=== PATIENT | female | born 1950 | race Two or more races ===

== ENCOUNTER 2023-05-28 15:18 | Emergency (ER) | payer OTHER ==
[~2023-05-28] VITALS: Ht 167.6 cm; Wt 49.9 kg
[2023-05-28 15:24] VITALS: TEMP 98.7
[2023-05-28 16:37] LABS: BASOPHILS % (AUTO) 0.7 % (0.0-2.0); EOSINOPHILS # (AUTO) 0.1 K/uL (0.0-0.7); EOSINOPHILS % (AUTO) 2.5 % (0.0-6.0); HEMATOCRIT 43 % (33-45); HEMOGLOBIN 13.8 g/dL (11.5-14.8); LYMPHOCYTES # (AUTO) 0.9 K/uL (0.8-4.8); LYMPHOCYTES % (AUTO) 20.6 % (20.0-44.0); MEAN CORPUSCULAR HEMOGLOBIN 29 PG (26.0-33.0); MEAN CORPUSCULAR HGB CONC 32 g/dl (31.0-36.0); MEAN CORPUSCULAR VOLUME 89 fL (82-100); MONOCYTES # (AUTO) 0.4 K/uL (0.1-1.30); MONOCYTES % (AUTO) 8.3 % (2.0-12.0); NEUTROPHILS # (AUTO) 2.9 K/uL (1.8-8.9); NEUTROPHILS % (AUTO) 67.9 % (43.0-81.0); PLATELET COUNT (AUTO) 196 K/uL (150-450); RED BLOOD CELL COUNT(AUTO) 4.84 MIL/uL (4.0-5.2); WHITE BLOOD COUNT (AUTO) 4.2 K/uL (4.3-11.0)
[2023-05-28 16:49] LABS: LACTIC ACID 0.7 mmol/L (0.4-2.0)
[2023-05-28 16:53] LABS: CALCIUM, SERUM 10.1 mg/dL (8.5-10.1); CARBON DIOXIDE 30 mmol/L (21-32); CHLORIDE 97 mmol/L (98-107); CREATININE 0.7 mg/dL (0.6-1.3); GLUCOSE 94 mg/dL (74-106); POTASSIUM 3.6 mmol/L (3.5-5.1); SODIUM SERUM 134 mmol/L (136-145); UREA NITROGEN, BLOOD 12 mg/dL (7-18)
[2023-05-28 16:58] LABS: ALANINE AMINOTRANSFERASE 24 U/L (12-78); ALKALINE PHOSPHATASE 95 U/L (46-116); ASPARTATE AMINOTRANSFERASE 25 U/L (15-37); BILIRUBIN,DIRECT 0.1 mg/dL (0.0-0.2); BILIRUBIN,TOTAL 0.5 mg/dL (0.2-1.0); TOTAL PROTEIN, SERUM 9.9 g/dL (6.4-8.2)
[2023-05-28] MEDS ORDERED: MORPHINE SULFATE INJ 2 MG/ML DISP.SYRIN IV ONE (17:30)
[2023-05-28] MEDS ORDERED: MORPHINE SULFATE INJ 2 MG/ML DISP.SYRIN ONE (17:44)
[2023-05-28] MEDS ORDERED: LORAZEPAM INJ 2 MG/ML VIAL ONE (17:58)
[2023-05-28] MEDS ORDERED: SENN-18 PO (18:01)
[2023-05-28] MEDS ORDERED: TRIH5TAB3 PO (18:01)
[2023-05-28] MEDS ORDERED: BISA10SU11 RC (18:01)
[2023-05-28] MEDS ORDERED: ACET-2605 PO (18:01)
[2023-05-28] MEDS ORDERED: CALC-883 PO (18:01)
[2023-05-28] MEDS ORDERED: DICL100G26 TP (18:01)
[2023-05-28] MEDS ORDERED: ONDA-97 PO (18:01)
[2023-05-28] MEDS ORDERED: AMAN100T PO (18:01)
[2023-05-28] MEDS ORDERED: ACET-868 PO ×2 (18:01)
[2023-05-28] MEDS ORDERED: PROP10TA10 PO (18:01)
[2023-05-28] MEDS ORDERED: PANT20TA2 PO (18:01)
[2023-05-28] MEDS ORDERED: QUET25TA PO (18:01)
[2023-05-28] MEDS ORDERED: ACET650S11 RC (18:01)
[2023-05-28 18:07] LABS: APPEARANCE,URINE CLEAR (CLEAR); BILIRUBIN,URINE NEGATIVE (NEGATIVE); BLOOD, URINE TRACE-INTA Ery/uL (NEGATIVE); COLOR,URINE YELLOW (YELLOW); KETONES,URINE NEGATIVE (NEGATIVE); LEUKOCYTE ESTERASE ,URINE NEGATIVE (NEGATIVE); NITRITE, URINE NEGATIVE (NEGATIVE); PROTEIN,URINE NEGATIVE (NEGATIVE); UGLUCOSE NEGATIVE (NEGATIVE); UROBILINOGEN,URINE 0.2 EU/dL (0.2)
[2023-05-28 18:25] LABS: ADD URINE CULTURE NO; BACTERIA,URINE Rare /HPF (None Seen); WBC,URINE NONE SEEN /HPF (0-3)
[2023-05-28 18:26] LABS: SQUAMOUS EPITHELIAL CELL,UR Rare /HPF (None Seen)
[2023-05-28] MEDS ORDERED: ATRO2DRO4 SL (18:29)
[2023-05-28] MEDS ORDERED: LORAZEPAM INJ 2 MG/ML VIAL IV ONE (18:30)
[2023-05-28 19:00] VITALS: BP 152/98; O2SAT 98
== END 2023-05-28 22:12 ==
LOC: ER 15:26
DX: S09.90XA Unspecified injury of head, initial encounter (principal); G20.A1 Parkinson's disease without dyskinesia, without mention of fluctuations; F02.80 Dementia in other diseases classified elsewhere, unspecified severity, without behavioral disturbance, psychotic disturbance, mood disturbance, and anxiety; Z79.899 Other long term (current) drug therapy; W18.30XA Fall on same level, unspecified, initial encounter; Y93.89 Activity, other specified; Y92.89 Other specified places as the place of occurrence of the external cause; Y99.8 Other external cause status
CPT/HCPCS: 99285; 96374; 70450; 71045; 96375; 93005; 85025; 80048; 82550; 83605; 80076; 81001; 36415; 84484; 83880; J2060; J2270

== ENCOUNTER 2024-08-18 19:35 | Emergency (ER) | payer OTHER ==
[~2024-08-18] VITALS: Ht 162.6 cm; Wt 45.8 kg
[~2024-08-18 19:35] MED LIST: ACET-2605 PO; ACET-868 PO; ACET650S11 RC; AMAN100T PO; ATRO2DRO4 SL; BISA10SU11 RC; CALC-883 PO; DICL100G26 TP; ONDA-97 PO; PANT20TA2 PO; PROP10TA10 PO; QUET25TA PO; SENN-18 PO; TRIH5TAB3 PO
[2024-08-18 20:30] VITALS: BP 123/98; TEMP 98.3; O2SAT 95
[2024-08-18] MEDS ORDERED: HALOPERIDOL LACTATE INJ 5 MG/ML VIAL ONE (20:36)
[2024-08-18] MEDS: HALOPERIDOL LACTATE INJ 5 MG/ML VIAL IM ONE (20:37)
[2024-08-18] MEDS ORDERED: diphenhydrAMINE HCL 50 MG/ML VIAL ONE (21:32)
[2024-08-18] MEDS ORDERED: LORAZEPAM INJ 2 MG/ML VIAL ONE (21:32)
[2024-08-18] MEDS: diphenhydrAMINE HCL 50 MG/ML VIAL IM ONE (21:44)
[2024-08-18] MEDS: LORAZEPAM INJ 2 MG/ML VIAL IV ONE (21:45)
[2024-08-18 23:42] LABS: BASOPHILS % (AUTO) 0.5 % (0.0-2.0); EOSINOPHILS # (AUTO) 0.1 K/uL (0.0-0.7); EOSINOPHILS % (AUTO) 1.5 % (0.0-6.0); HEMATOCRIT 37 % (33-45); HEMOGLOBIN 12.2 g/dL (11.5-14.8); LYMPHOCYTES # (AUTO) 1.5 K/uL (0.8-4.8); LYMPHOCYTES % (AUTO) 15.1 % (20.0-44.0); MEAN CORPUSCULAR HEMOGLOBIN 30 PG (26.0-33.0); MEAN CORPUSCULAR HGB CONC 33 g/dl (31.0-36.0); MEAN CORPUSCULAR VOLUME 90 fL (82-100); MONOCYTES # (AUTO) 0.8 K/uL (0.1-1.30); MONOCYTES % (AUTO) 8.1 % (2.0-12.0); NEUTROPHILS # (AUTO) 7.2 K/uL (1.8-8.9); NEUTROPHILS % (AUTO) 74.8 % (43.0-81.0); PLATELET COUNT (AUTO) 238 K/uL (150-450); RED BLOOD CELL COUNT(AUTO) 4.06 MIL/uL (4.0-5.2); RED CELL DISTRIBUTION WIDTH 16.7 % (11.5-15.0); WHITE BLOOD COUNT (AUTO) 9.6 K/uL (4.3-11.0)
[2024-08-18 23:56] LABS: ALANINE AMINOTRANSFERASE 12 U/L (12-78); ALBUMIN 3.3 g/dL (3.4-5.0); ALKALINE PHOSPHATASE 74 U/L (46-116); ASPARTATE AMINOTRANSFERASE 23 U/L (15-37); BILIRUBIN,DIRECT 0.1 mg/dL (0.0-0.2); BILIRUBIN,TOTAL 0.2 mg/dL (0.2-1.0); CALCIUM, SERUM 9.9 mg/dL (8.5-10.1); CARBON DIOXIDE 27 mmol/L (21-32); CHLORIDE 105 mmol/L (98-107); CREATININE 0.8 mg/dL (0.6-1.3); GLUCOSE 99 mg/dL (74-106); POTASSIUM 4.5 mmol/L (3.5-5.1); SODIUM SERUM 138 mmol/L (136-145); TOTAL PROTEIN, SERUM 8.7 g/dL (6.4-8.2); UREA NITROGEN, BLOOD 21 mg/dL (7-18)
== END 2024-08-19 01:22 | disposition home or self-care (01) ==
LOC: ER 19:46
DX: M54.2 Cervicalgia (principal); F02.80 Dementia in other diseases classified elsewhere, unspecified severity, without behavioral disturbance, psychotic disturbance, mood disturbance, and anxiety; I10 Essential (primary) hypertension; G20.A1 Parkinson's disease without dyskinesia, without mention of fluctuations; G30.9 Alzheimer's disease, unspecified; Z79.899 Other long term (current) drug therapy; W18.30XA Fall on same level, unspecified, initial encounter; Y93.89 Activity, other specified; Y92.89 Other specified places as the place of occurrence of the external cause; Y99.8 Other external cause status
CPT/HCPCS: 99285; 72125; 96372 ×2; 71250; 70450; 74176; 85025; 80048; 80076; 36415; J2060; J1200; J1630; L0172

== ENCOUNTER 2024-08-30 20:48 | Inpatient (IN) | payer OTHER ==
[~2024-08-30] VITALS: Ht 152.4 cm; Wt 32.2 kg
[2024-08-30] MEDS ORDERED: ONDANSETRON HCL/PF 4 MG/2 ML VIAL ONE (21:21)
[2024-08-30] MEDS: ONDANSETRON HCL/PF 4 MG/2 ML VIAL IV ONE (21:28)
[2024-08-30 21:30] LABS: EOSINOPHILS # (AUTO) 0.1 K/uL (0.0-0.7); MONOCYTES # (AUTO) 0.9 K/uL (0.1-1.30)
[2024-08-30 21:41] LABS: CALCIUM, SERUM 9.7 mg/dL (8.5-10.1); CARBON DIOXIDE 30 mmol/L (21-32); CHLORIDE 104 mmol/L (98-107); CREATININE 0.9 mg/dL (0.6-1.3); GLUCOSE 99 mg/dL (74-106); POTASSIUM 3.8 mmol/L (3.5-5.1); SODIUM SERUM 140 mmol/L (136-145); UREA NITROGEN, BLOOD 30 mg/dL (7-18)
[2024-08-30 21:54] LABS: BASOPHILS % (AUTO) 0.2 % (0.0-2.0); EOSINOPHILS % (AUTO) 1.3 % (0.0-6.0); HEMATOCRIT 34 % (33-45); HEMOGLOBIN 10.9 g/dL (11.5-14.8); LYMPHOCYTES # (AUTO) 1.2 K/uL (0.8-4.8); LYMPHOCYTES % (AUTO) 10.9 % (20.0-44.0); MEAN CORPUSCULAR HEMOGLOBIN 29 PG (26.0-33.0); MEAN CORPUSCULAR HGB CONC 32 g/dl (31.0-36.0); MEAN CORPUSCULAR VOLUME 90 fL (82-100); MONOCYTES % (AUTO) 7.9 % (2.0-12.0); NEUTROPHILS # (AUTO) 8.9 K/uL (1.8-8.9); NEUTROPHILS % (AUTO) 79.7 % (43.0-81.0); PLATELET COUNT (AUTO) 244 K/uL (150-450); RED BLOOD CELL COUNT(AUTO) 3.77 MIL/uL (4.0-5.2); RED CELL DISTRIBUTION WIDTH 15.7 % (11.5-15.0); WHITE BLOOD COUNT (AUTO) 11.1 K/uL (4.3-11.0)
[2024-08-30 22:03] LABS: INR 1.06 (0.91-1.10); PARTIAL THROMBOPLASTIN TIME 25.6 SEC (24.3-34.3); PROTHROMBIN TIME 11.2 SECS (9.2-11.1)
[2024-08-31] MEDS ORDERED: MAG HYDROX/AL HYDROX/SIMETH 30 ML UDC PO PRN
[2024-08-31] MEDS ORDERED: ENOXAPARIN SODIUM 40 MG/0.4 ML DISP.SYRIN SQ SCH
[2024-08-31] MEDS ORDERED: MAGNESIUM HYDROXIDE 30 ML UDC PO PRN
[2024-08-31] MEDS ORDERED: ONDANSETRON HCL/PF 4 MG/2 ML VIAL IVP PRN
[2024-08-31] MEDS ORDERED: ACETAMINOPHEN 325 MG TABLET PO PRN
[2024-08-31] MEDS ORDERED: MIRT-119 PO (00:05)
[2024-08-31] MEDS ORDERED: ROPI0.255 PO (00:05)
[2024-08-31] MEDS ORDERED: BUSP5TAB3 PO (00:05)
[2024-08-31] MEDS ORDERED: carbidopa-levodopa PO (00:12)
[2024-08-31] MEDS ORDERED: Medication Not On Formulary EA (Ondansetron Hcl 4 MG) PO PRN (00:30)
[2024-08-31 02:30] VITALS: BP 136/72; TEMP 97.7; O2SAT 97
[2024-08-31 04:00] VITALS: BP 152/83; TEMP 97.5; O2SAT 99
[2024-08-31] MEDS: IV D5/ 0.9% NACL 1,000 ML IV SCH (05:31)
[2024-08-31 08:00] VITALS: BP 175/90; TEMP 97.5; O2SAT 93
[2024-08-31 08:01] LABS: BASOPHILS % (AUTO) 0.3 % (0.0-2.0); EOSINOPHILS # (AUTO) 0.2 K/uL (0.0-0.7); EOSINOPHILS % (AUTO) 1.9 % (0.0-6.0); HEMATOCRIT 38 % (33-45); HEMOGLOBIN 12.5 g/dL (11.5-14.8); LYMPHOCYTES # (AUTO) 0.9 K/uL (0.8-4.8); LYMPHOCYTES % (AUTO) 11.3 % (20.0-44.0); MEAN CORPUSCULAR HEMOGLOBIN 30 PG (26.0-33.0); MEAN CORPUSCULAR HGB CONC 33 g/dl (31.0-36.0); MEAN CORPUSCULAR VOLUME 91 fL (82-100); MONOCYTES # (AUTO) 0.6 K/uL (0.1-1.30); MONOCYTES % (AUTO) 7.9 % (2.0-12.0); NEUTROPHILS # (AUTO) 6.1 K/uL (1.8-8.9); NEUTROPHILS % (AUTO) 78.6 % (43.0-81.0); PLATELET COUNT (AUTO) 213 K/uL (150-450); RED BLOOD CELL COUNT(AUTO) 4.22 MIL/uL (4.0-5.2); RED CELL DISTRIBUTION WIDTH 15.3 % (11.5-15.0); WHITE BLOOD COUNT (AUTO) 7.8 K/uL (4.3-11.0)
[2024-08-31 08:10] LABS: CALCIUM, SERUM 9.2 mg/dL (8.5-10.1); CREATININE 0.6 mg/dL (0.6-1.3); MAGNESIUM 2.4 mg/dL (1.8-2.4); PHOSPHORUS 2.7 mg/dL (2.5-4.9)
[2024-08-31] MEDS: TRIHEXYPHENIDYL HCL 5 MG TABLET PO SCH (09:00)
[2024-08-31] MEDS: busPIRone 5 MG TABLET PO SCH (09:00)
[2024-08-31] MEDS: ropiniROLE 0.5 MG TABLET PO SCH (09:00)
[2024-08-31] MEDS: PROPRANOLOL HCL 10 MG TABLET PO SCH (09:00)
[2024-08-31] MEDS: CARBIDOPA/LEVODOPA 10/100 MG 1 UDTAB PO SCH (09:00)
[2024-08-31] MEDS ORDERED: CRAN400C PO (09:20)
[2024-08-31] MEDS: PANTOPRAZOLE 40 MG VIAL IV SCH (09:53)
[2024-08-31] MEDS: SENNOSIDES 8.6 MG TABLET PO SCH (09:54)
[2024-08-31 12:00] VITALS: BP 172/93; TEMP 97.7; O2SAT 95
[2024-08-31] MEDS: ATORVASTATIN 40 MG TABLET PO SCH (12:00)
[2024-08-31] MEDS ORDERED: MORPHINE SULFATE INJ 2 MG/ML DISP.SYRIN IV PRN (12:00)
[2024-08-31 12:50] LABS: INR 1.06 (0.91-1.10); PARTIAL THROMBOPLASTIN TIME 30.7 SEC (24.3-34.3); PROTHROMBIN TIME 11.2 SECS (9.2-11.1)
[2024-08-31] MEDS: NITROGLYCERIN PACKET 1 GM PACKET TOP SCH (13:07)
[2024-08-31] MEDS: HEPARIN SODIUM, PORCINE 5000 UNITS/1 ML VIAL IV ONE (13:47)
[2024-08-31] MEDS: HEPARIN INFUSION/D5W 500 ML IV PRN (13:49)
[2024-08-31 16:00] VITALS: BP 150/90; TEMP 97.5; O2SAT 100
[2024-08-31] MEDS: MIRTAZAPINE 15 MG TABLET PO SCH (18:00)
[2024-08-31] MEDS: LISINOPRIL (10MG) 10 MG TABLET PO SCH (19:30)
[2024-08-31 20:00] VITALS: BP 156/92; TEMP 97.9; O2SAT 100
[2024-08-31] MEDS: METOPROLOL TARTRATE 25 MG TABLET PO SCH (21:00)
[2024-08-31 21:31] LABS: INR 1.08 (0.91-1.10); PARTIAL THROMBOPLASTIN TIME 40.4 SEC (24.3-34.3); PROTHROMBIN TIME 11.4 SECS (9.2-11.1)
[2024-09-01] VITALS: BP 155/93; TEMP 97.5; O2SAT 100
[2024-09-01 03:59] LABS: BASOPHILS % (AUTO) 0.6 % (0.0-2.0); EOSINOPHILS # (AUTO) 0.2 K/uL (0.0-0.7); EOSINOPHILS % (AUTO) 3.3 % (0.0-6.0); HEMATOCRIT 36 % (33-45); HEMOGLOBIN 11.8 g/dL (11.5-14.8); LYMPHOCYTES # (AUTO) 0.9 K/uL (0.8-4.8); LYMPHOCYTES % (AUTO) 13.6 % (20.0-44.0); MEAN CORPUSCULAR HEMOGLOBIN 30 PG (26.0-33.0); MEAN CORPUSCULAR HGB CONC 33 g/dl (31.0-36.0); MEAN CORPUSCULAR VOLUME 91 fL (82-100); MONOCYTES # (AUTO) 0.6 K/uL (0.1-1.30); MONOCYTES % (AUTO) 8.3 % (2.0-12.0); NEUTROPHILS % (AUTO) 74.2 % (43.0-81.0); PLATELET COUNT (AUTO) 198 K/uL (150-450); RED BLOOD CELL COUNT(AUTO) 3.98 MIL/uL (4.0-5.2); RED CELL DISTRIBUTION WIDTH 14.8 % (11.5-15.0); WHITE BLOOD COUNT (AUTO) 6.7 K/uL (4.3-11.0)
[2024-09-01 04:00] VITALS: BP 153/97; TEMP 97.9; O2SAT 100
[2024-09-01 04:11] LABS: CALCIUM, SERUM 8.6 mg/dL (8.5-10.1); CREATININE 0.6 mg/dL (0.6-1.3); MAGNESIUM 2.1 mg/dL (1.8-2.4); PHOSPHORUS 3.1 mg/dL (2.5-4.9); POTASSIUM 3.4 mmol/L (3.5-5.1)
[2024-09-01 08:00] VITALS: BP 159/87; TEMP 97.7; O2SAT 100
[2024-09-01] MEDS: POTASSIUM CHLORIDE 20 MEQ TAB.PRT.SR PO SCH (10:30)
[2024-09-01] MEDS: POTASSIUM CL. PREMIX PERIPHER. 50 ML IV SCH (11:57)
[2024-09-01 12:00] VITALS: BP 162/97; TEMP 98.1; O2SAT 100
[2024-09-01 16:00] VITALS: BP 166/97; TEMP 98.6; O2SAT 100
[2024-09-01] MEDS: hydrALAZINE HCL IV 20 MG VIAL IV PRN (16:25)
[2024-09-01] MEDS: METOPROLOL TARTRATE INJ 5 MG/5 ML AMPUL IVP ONE (17:07)
[2024-09-01] MEDS: IV D5/ 0.9% NACL 1,000 ML IV PRN (18:10)
[2024-09-01 20:00] VITALS: BP 154/88; TEMP 98.2; O2SAT 98
[2024-09-02] VITALS: BP 150/83; TEMP 98.1; O2SAT 99
[2024-09-02 04:00] VITALS: BP 157/85; TEMP 98.2; O2SAT 100
[2024-09-02 07:46] LABS: BASOPHILS % (AUTO) 0.3 % (0.0-2.0); EOSINOPHILS % (AUTO) 0.2 % (0.0-6.0); HEMATOCRIT 36 % (33-45); HEMOGLOBIN 11.7 g/dL (11.5-14.8); LYMPHOCYTES # (AUTO) 0.5 K/uL (0.8-4.8); LYMPHOCYTES % (AUTO) 4.1 % (20.0-44.0); MEAN CORPUSCULAR HEMOGLOBIN 30 PG (26.0-33.0); MEAN CORPUSCULAR HGB CONC 33 g/dl (31.0-36.0); MEAN CORPUSCULAR VOLUME 91 fL (82-100); MONOCYTES # (AUTO) 0.6 K/uL (0.1-1.30); MONOCYTES % (AUTO) 4.5 % (2.0-12.0); NEUTROPHILS # (AUTO) 11.8 K/uL (1.8-8.9); NEUTROPHILS % (AUTO) 90.9 % (43.0-81.0); PLATELET COUNT (AUTO) 182 K/uL (150-450); RED BLOOD CELL COUNT(AUTO) 3.94 MIL/uL (4.0-5.2); RED CELL DISTRIBUTION WIDTH 14.6 % (11.5-15.0)
[2024-09-02 07:53] LABS: CALCIUM, SERUM 9.2 mg/dL (8.5-10.1); CREATININE 0.7 mg/dL (0.6-1.3); MAGNESIUM 2.1 mg/dL (1.8-2.4); PHOSPHORUS 2.8 mg/dL (2.5-4.9); POTASSIUM 3.3 mmol/L (3.5-5.1)
[2024-09-02 08:00] VITALS: BP 154/77; TEMP 97.9; O2SAT 100
[2024-09-02] MEDS ORDERED: POTASSIUM CHLORIDE 20 MEQ TAB.PRT.SR PO SCH (09:30)
[2024-09-02] MEDS: PANTOPRAZOLE 40 MG TABLET.DR PO SCH (09:50)
[2024-09-02] MEDS: POTASSIUM CHLORIDE 20 MEQ POWDER PACKET PO ONE (09:51)
[2024-09-02] MEDS ORDERED: POTASSIUM CHLORIDE 20 MEQ POWDER PACKET PO ONE (10:00)
[2024-09-02 12:00] VITALS: BP 156/86; TEMP 98.1; O2SAT 98
[2024-09-02 16:00] VITALS: BP 149/79; TEMP 99; O2SAT 100
[2024-09-02 20:00] VITALS: BP 144/83; TEMP 99; O2SAT 100
[2024-09-03] VITALS: BP 150/83; TEMP 100; O2SAT 100
[2024-09-03] MEDS: ACETAMINOPHEN 650 MG/SUPP.RECT RC PRN (01:16)
[2024-09-03 04:00] VITALS: BP 142/79; TEMP 98.2; O2SAT 100
[2024-09-03 07:34] LABS: BASOPHILS % (AUTO) 0.5 % (0.0-2.0); EOSINOPHILS # (AUTO) 0.2 K/uL (0.0-0.7); EOSINOPHILS % (AUTO) 1.8 % (0.0-6.0); HEMATOCRIT 31 % (33-45); HEMOGLOBIN 10.2 g/dL (11.5-14.8); LYMPHOCYTES # (AUTO) 0.6 K/uL (0.8-4.8); LYMPHOCYTES % (AUTO) 6.6 % (20.0-44.0); MEAN CORPUSCULAR HEMOGLOBIN 30 PG (26.0-33.0); MEAN CORPUSCULAR HGB CONC 33 g/dl (31.0-36.0); MEAN CORPUSCULAR VOLUME 91 fL (82-100); MONOCYTES # (AUTO) 0.6 K/uL (0.1-1.30); MONOCYTES % (AUTO) 7.2 % (2.0-12.0); NEUTROPHILS % (AUTO) 83.9 % (43.0-81.0); PLATELET COUNT (AUTO) 171 K/uL (150-450); RED CELL DISTRIBUTION WIDTH 14.3 % (11.5-15.0); WHITE BLOOD COUNT (AUTO) 8.4 K/uL (4.3-11.0)
[2024-09-03 07:40] LABS: CREATININE 0.6 mg/dL (0.6-1.3); MAGNESIUM 2.1 mg/dL (1.8-2.4); PHOSPHORUS 2.5 mg/dL (2.5-4.9); POTASSIUM 3.2 mmol/L (3.5-5.1)
[2024-09-03 08:00] VITALS: BP 132/72; TEMP 98.2; O2SAT 100
[2024-09-03] MEDS: POTASSIUM CL. PREMIX PERIPHER. 50 ML IV SCH (11:45)
[2024-09-03 16:00] VITALS: BP 144/81; TEMP 98.6; O2SAT 100
[2024-09-04 00:02] VITALS: BP 144/81; TEMP 98.6; O2SAT 100
[2024-09-04 07:47] LABS: BASOPHILS % (AUTO) 0.2 % (0.0-2.0); EOSINOPHILS # (AUTO) 0.2 K/uL (0.0-0.7); EOSINOPHILS % (AUTO) 2.2 % (0.0-6.0); HEMATOCRIT 37 % (33-45); LYMPHOCYTES # (AUTO) 0.8 K/uL (0.8-4.8); LYMPHOCYTES % (AUTO) 9.3 % (20.0-44.0); MEAN CORPUSCULAR HEMOGLOBIN 29 PG (26.0-33.0); MEAN CORPUSCULAR HGB CONC 32 g/dl (31.0-36.0); MEAN CORPUSCULAR VOLUME 91 fL (82-100); MONOCYTES # (AUTO) 0.5 K/uL (0.1-1.30); NEUTROPHILS # (AUTO) 6.7 K/uL (1.8-8.9); NEUTROPHILS % (AUTO) 82.3 % (43.0-81.0); PLATELET COUNT (AUTO) 197 K/uL (150-450); RED BLOOD CELL COUNT(AUTO) 4.08 MIL/uL (4.0-5.2); RED CELL DISTRIBUTION WIDTH 14.2 % (11.5-15.0); WHITE BLOOD COUNT (AUTO) 8.2 K/uL (4.3-11.0)
[2024-09-04 08:13] LABS: CALCIUM, SERUM 9.7 mg/dL (8.5-10.1); CREATININE 0.6 mg/dL (0.6-1.3); MAGNESIUM 2.2 mg/dL (1.8-2.4); PHOSPHORUS 2.7 mg/dL (2.5-4.9); POTASSIUM 3.4 mmol/L (3.5-5.1)
[2024-09-04] MEDS: hydrALAZINE HCL IV 20 MG VIAL IV PRN (09:25)
[2024-09-04] MEDS: POTASSIUM CL. PREMIX PERIPHER. 50 ML IV SCH (10:00)
[2024-09-04 11:39] VITALS: BP 168/78; TEMP 98; O2SAT 95
[2024-09-04 12:12] VITALS: BP 148/71; TEMP 98; O2SAT 99
[2024-09-04 16:52] VITALS: BP 149/74; TEMP 98; O2SAT 98
[2024-09-05] VITALS: BP 150/88; TEMP 98.4; O2SAT 100
[2024-09-05 07:31] VITALS: BP 156/71
[2024-09-05 08:18] LABS: BASOPHILS % (AUTO) 0.5 % (0.0-2.0); EOSINOPHILS # (AUTO) 0.3 K/uL (0.0-0.7); EOSINOPHILS % (AUTO) 4.2 % (0.0-6.0); HEMATOCRIT 36 % (33-45); HEMOGLOBIN 11.8 g/dL (11.5-14.8); LYMPHOCYTES # (AUTO) 0.7 K/uL (0.8-4.8); LYMPHOCYTES % (AUTO) 11.4 % (20.0-44.0); MEAN CORPUSCULAR HEMOGLOBIN 30 PG (26.0-33.0); MEAN CORPUSCULAR HGB CONC 33 g/dl (31.0-36.0); MEAN CORPUSCULAR VOLUME 92 fL (82-100); MONOCYTES # (AUTO) 0.5 K/uL (0.1-1.30); MONOCYTES % (AUTO) 8.3 % (2.0-12.0); NEUTROPHILS # (AUTO) 4.5 K/uL (1.8-8.9); NEUTROPHILS % (AUTO) 75.6 % (43.0-81.0); PLATELET COUNT (AUTO) 185 K/uL (150-450); RED BLOOD CELL COUNT(AUTO) 3.93 MIL/uL (4.0-5.2); RED CELL DISTRIBUTION WIDTH 14.5 % (11.5-15.0)
[2024-09-05] MEDS ORDERED: LISI10TA29 PO (08:36)
[2024-09-05] MEDS ORDERED: METO25TA20 PO (08:36)
[2024-09-05] MEDS ORDERED: ATOR40TA PO (08:36)
[2024-09-05 08:38] LABS: CREATININE 0.5 mg/dL (0.6-1.3); MAGNESIUM 2.2 mg/dL (1.8-2.4); POTASSIUM 3.4 mmol/L (3.5-5.1)
[2024-09-05] MEDS ORDERED: POTASSIUM CL. PREMIX PERIPHER. 50 ML IV SCH (09:30)
== END 2024-09-05 13:39 | disposition hospice, inpatient (51) | DRG 139 ==
LOC: ER 20:56 → TELE1 08-31 00:04 → MEDSG1 09-03 09:40
PROVIDERS: ADMIT Nurse Practitioner Acute Care; ATTEND Internal Medicine
DX: J15.9 Unspecified bacterial pneumonia (principal); I21.4 Non-ST elevation (NSTEMI) myocardial infarction; F02.80 Dementia in other diseases classified elsewhere, unspecified severity, without behavioral disturbance, psychotic disturbance, mood disturbance, and anxiety; G20.A1 Parkinson's disease without dyskinesia, without mention of fluctuations; S00.83XA Contusion of other part of head, initial encounter; G30.9 Alzheimer's disease, unspecified; W19.XXXA Unspecified fall, initial encounter; Y92.9 Unspecified place or not applicable; I10 Essential (primary) hypertension; Z79.899 Other long term (current) drug therapy; Z51.5 Encounter for palliative care; Z66 Do not resuscitate
CPT/HCPCS: 36415; 70450-TC; 71045-TC; 73030-TC; 73060-TC; 80048-TC; 83735-TC; 84100-TC; 84484-TC; 85025-TC; 85730-TC; 87081-TC; 92526; 92611-TC; 93307-TC; 97110-TC; 97530-TC; A4223; G0378; J0360; J1644; J2405; J2470; J3480; J3490; J7042; J7050